=== PATIENT | male | born 1985 | race Caucasian/White ===

== ENCOUNTER 2018-02-11 22:48 | Emergency (ER) | payer MEDICARE, MEDICAID ==
--- NOTE | 2018-02-12 00:04 | EDM.PDOC ---
ED HPI GENERAL MEDICAL PROBLEM - General Chief Complaint: Skin Complaint Stated Complaint: LEFT ARM COMPLAINT Time Seen by Provider: 02/11/18 23:16 Source of Information: Reports: Patient History Limitations: Reports: Altered Mental Status - History of Present Illness INITIAL COMMENTS - FREE TEXT/NARRATIVE: The patient's history is difficult to obtain, as his thoughts are rambling, switching from subject to subject frequently, and paranoid. He forgets what he is talking about, and drifts off. He reports feeling object thoughts. He presents to the emergency room with an erythematous area to the ulnar aspect of his left forearm, that he states has been there for about 4 hours. When asked , he states that he injected Desoxyn to that site. Desoxyn is a brand name for prescription methamphetamine. It comes as an oral tablet. When asked if he was prescribed it or got it off the street, he acknowledged that he got it off the street. When asked about his methamphetamine use, the patient was very vague, initially indicating that he has only been using it for a few weeks, later indicating that he has been using it for many years. He indicated that he had previously been on Concerta, but decided to switch to methamphetamine, because he feels that it is much better. He also acknowledges smoking marijuana on occasion, including tonight. He states that he is an alcoholic, although he states that he drinks less now. When asked if the patient shares needles, he indicated that he does, but that he bleaches his syringe. The patient states that his PCP is at [facility], but he does not recall their name. Treatments ADMITTING REPRESENTATIVE: Reports: Other (see below) Other Treatments ADMITTING REPRESENTATIVE: took anxiety pill Left Arm Pain Score (Numeric/FACES): 4 - Related Data Allergies Allergy/AdvReac Type Severity Reaction Status Date / Time azithromycin Allergy Rash Verified 02/11/18 22:57 morphine Allergy Rash Verified 02/11/18 22:57 Home Meds: Home Meds Metoprolol Succinate 100 mg PO DAILY 02/11/18 [History] Omeprazole 20 mg PO DAILY 02/11/18 [History] risperiDONE [Risperdal] 0 mg PO DAILY 02/11/18 [History] Past Medical History Gastrointestinal History: Reports: GERD Psychiatric History: Reports: ADHD, Bipolar Social & Family History - Tobacco Use Smoking Status *Q: Former Smoker Years of Tobacco use: 11 Packs/Tins Daily: 1.5 Month/Year Tobacco Last Used: Quit 2011 - Caffeine Use Caffeine Use: Reports: Coffee, Tea - Alcohol Use Alcohol Use History: Yes Date/Time of Last Drink Comment: Alcoholic - Recreational Drug Use Recreational Drug Use: Yes Drug Use in Last 12 Months: Yes Recreational Drug Type: Reports: Marijuana/Hashish (last smoked 02/12/2018), Methamphetamine (last injected 02/12/2018) Other Recreational Drug Type: pt states he had a surgical procedure in the past to the LAC and says from iv drug use but then refusing to discuss anymore about this - Living Situation & Occupation Living situation: Reports: Single, Alone Occupation: Employed (Odd jobs) ED ROS GENERAL - Review of Systems Review Of Systems: ROS reveals no pertinent complaints other than HPI. ED EXAM, SKIN/RASH Exam: See Below Exam Limited By: No Limitations General Appearance: WD/WN, No Apparent Distress Eye Exam: Bilateral Eye: Normal Inspection Ears: Normal External Exam, Hearing Grossly Normal Nose: Normal Inspection Throat/Mouth: Normal Inspection, Normal Lips, Normal Voice, No Airway Compromise Head: Atraumatic, Normocephalic Neck: Normal Inspection, Full Range of Motion Respiratory/Chest: No Respiratory Distress, Lungs Clear, Normal Breath Sounds, No Accessory Muscle Use Cardiovascular: Normal Peripheral Pulses, No Edema, No Gallop, No JVD, No Murmur , No Rub, Tachycardia (regular) Peripheral Pulses: 4+: Radial (L), Radial (R) GI/Abdominal: Normal Bowel Sounds, Soft, Non-Tender, No Organomegaly, No Distention, No Abnormal Bruit, No Mass, Other (Obese) (Male) Exam: Deferred Rectal (Males) Exam: Deferred Back Exam: Normal Inspection, Full Range of Motion, NT Extremities: Normal Range of Motion, No Pedal Edema, Normal Capillary Refill, Other (Approximately 4 cm irregularly shaped area of erythema, slightly swollen , to the ulnar aspect of the mid left forearm. The patient reports tenderness to palpation. No fluctuance.) Neurological: No Motor/Sensory Deficits, Confused (Rambling thoughts) Psychiatric: Other (Paranoia) Skin: Warm, Intact, Normal Color, No Rash, Diaphoretic Course - Vital Signs Last Recorded V/S: Last Vital Signs Temp 37.2 C 02/11/18 23:05 Pulse 105 H 02/11/18 23:05 Resp 20 02/11/18 23:05 BP 144/108 H 02/11/18 23:05 Pulse Ox 98 02/11/18 23:05 - Orders/Labs/Meds Orders: Active Orders 24 hr Category Date Time Status DRUG SCREEN, URINE [URCHEM] Stat Lab 02/11/18 23:33 Ordered Labs: Laboratory Tests 02/11/18 02/11/18 02/11/18 Range/Units 23:45 23:45 23:45 WBC 7.66 (4.23-9.07) K/mm3 RBC 4.93 (4.63-6.08) M/mm3 Hgb 14.0 (13.7-17.5) gm/L Hct 41.4 (40.1-51.0) % MCV 84.0 (79.0-92.2) fl MCH 28.4 (25.7-32.2) pg MCHC 33.8 (32.2-35.5) g/dl RDW Std Deviation 40.9 (35.1-43.9) fL Plt Count 241 (163-337) K/mm3 MPV 9.7 (9.4-12.3) fl Neutrophils % (Manual) 78 H (40-60) % Band Neutrophils % 0 (0-10) % Lymphocytes % (Manual) 19 L (20-40) % Atypical Lymphs % 0 % Monocytes % (Manual) 1 L (2-10) % Eosinophils % (Manual) 2 (0.8-7.0) % Basophils % (Manual) 0 L (0.2-1.2) Toxic Granulation Few Platelet Estimate Adequate Plt Morphology Comment Normal RBC Morph Comment Normal Sodium 138 (136-145) mEq/L Potassium 3.5 (3.5-5.1) mEq/L Chloride 102 (98-107) mEq/L Carbon Dioxide 24 (21-32) mEq/L Anion Gap 15.5 H (5-15) BUN 18 (7-18) mg/dL Creatinine 1.3 (0.7-1.3) mg/dL Est Cr Clr Drug Dosing 72.25 mL/min Estimated GFR (MDRD) > 60 (>60) mL/min BUN/Creatinine Ratio 13.8 L (14-18) Glucose 172 H (74-106) mg/dL Calcium 9.0 (8.5-10.1) mg/dL Magnesium 2.1 (1.8-2.4) mg/dl Total Bilirubin 0.5 (0.2-1.0) mg/dL AST 18 (15-37) U/L ALT 24 (16-63) U/L Alkaline Phosphatase 64 (46-116) U/L Total Protein 7.3 (6.4-8.2) g/dl Albumin 3.8 (3.4-5.0) g/dl Globulin 3.5 gm/dL Albumin/Globulin Ratio 1.1 (1-2) Ethyl Alcohol 0.00 (0.00) gm% HIV-1 Ab Rapid Screen Negative (NEGATIVE) - Re-Assessments/Exams Free Text/Narrative Re-Assessment/Exam: 02/12/18 00:04 Notified by Kori SIMS that the patient is refusing to provide a urine sample. 02/12/18 01:46 The patient's CMP finds his blood glucose to be elevated at 172. The remainder of his workup is unremarkable, although, as above, he did not provide a urine sample for us to check a urine drug screen. As the patient has been expressing rambling thoughts and paranoia, I would prefer to keep him in the ER overnight, although if he decides he wants to go home, I don't know that I have the legal authority to stop him. 02/12/18 05:48 Notified by Kori SIMS that the patient was awakened wanted to go home. The patient is more lucid than he was earlier, but he is still invasive. I asked him if he would consider getting help with respect to his methamphetamine use, and he said no, that it was just a birthday thing (today is, in fact, his birthday), and that he does not need help. Departure - Departure Time of Disposition: 05:50 Disposition: Home, Self-Care 01 Condition: Fair Clinical Impression: Methamphetamine use, Cleans drug injection needle with bleach, Eruption due to drug at injection site, Hyperglycemia - Discharge Information Referrals: Emmanuelle Mandujano PA [Primary Care Provider] - Forms: ED Department Discharge Additional Instructions: You were seen in the emergency room for evaluation of a rash on your left forearm. You informed us that you had injected methamphetamine at that site. Workup in the ER included a number of blood tests. You refused to provide a urine sample. Your blood sugar was found to be elevated at 172. This indicates that you have either prediabetes or diabetes. We recommend that you follow-up with your PCP for further evaluation. We STRONGLY recommend that you seek professional counseling with respect to your methamphetamine use. Follow-up at [facility]: [address] [place] [phone] If any other problems, please do not hesitate to return to the ER. - My Orders Last 24 Hours: My Active Orders 02/11/18 23:33 DRUG SCREEN, URINE [URCHEM] Stat - Assessment/Plan Last 24 Hours: My Active Orders 02/11/18 23:33 DRUG SCREEN, URINE [URCHEM] Stat
== END 2018-02-12 06:06 | disposition home or self-care (01) ==
LOC: JD.ED 22:48
DX: T54.91XA Toxic effect of unspecified corrosive substance, accidental (unintentional), initial encounter (principal); L27.0 Generalized skin eruption due to drugs and medicaments taken internally; F15.90 Other stimulant use, unspecified, uncomplicated; R73.9 Hyperglycemia, unspecified; Z88.1 Allergy status to other antibiotic agents; Z88.5 Allergy status to narcotic agent; Z79.899 Other long term (current) drug therapy; K21.9 Gastro-esophageal reflux disease without esophagitis; Z87.891 Personal history of nicotine dependence
CPT/HCPCS: 36415; 80053; 83735; 85007; 85027; 99284; G0433; G0480; 99283

== ENCOUNTER 2018-09-21 16:53 | Emergency (ER) | payer MEDICARE, MEDICAID ==
--- NOTE | 2018-09-21 17:39 | EDM.PDOCBH ---
ED HPI GENERAL MEDICAL PROBLEM - General Chief Complaint: Behavioral/Psych Stated Complaint: MEDICAL CLEARANCE Time Seen by Provider: 09/21/18 17:15 Source of Information: Reports: Patient, Police, RN Notes Reviewed History Limitations: Reports: Uncooperative ("I don't want to talk to you") - History of Present Illness INITIAL COMMENTS - FREE TEXT/NARRATIVE: The patient is brought by the [place] police from [facility]. They are psychiatrically committing the patient to the [facility] in [place], but need medical clearance first. The plan would be that , once medically cleared, the patient would spend the night in snf, then be transported to [place] in the morning. In their paperwork, they report that the patient told them that he was going to go home and take a shot of vape juice just to see if it will poison him. He stated that he had drunk some the previous night. He was asked to provide a urine sample, and he refused. They report that he presented with symptoms of divine, impulsivity, racing thoughts, difficulty focusing, inattention, explosive mood swings, and engaging in dangerous self-harm behaviors. They felt that it was clear that he was an imminent danger to himself in his current state of mind, and therefore required psychiatric admission. Her in the ED, the patient is making some random statements, but is difficult to understand. After about a minute, he stated that he no longer wanted to talk to me, and refused to answer any further questions. When I offered him dinner, however, he did thank me, and he allowed me to physically examine him. The patient told Geni SIMS that he had injected vodka into his arm. Reviewing prior medical records, it is noted that the patient has a history of methamphetamine abuse. It is unknown if the patient has a PCP. - Related Data Allergies Allergy/AdvReac Type Severity Reaction Status Date / Time azithromycin Allergy Rash Verified 07/09/18 00:57 morphine Allergy Rash Verified 07/09/18 00:57 Home Meds: Home Meds Metoprolol Succinate 100 mg PO DAILY 02/11/18 [History] Omeprazole 20 mg PO DAILY 02/11/18 [History] Past Medical History Gastrointestinal History: Reports: GERD Psychiatric History: Reports: ADHD, Addiction (methamphetamine), Bipolar Social & Family History - Tobacco Use Smoking Status *Q: Never Smoker Second Hand Smoke Exposure: Yes - Caffeine Use Caffeine Use: Reports: None - Recreational Drug Use Recreational Drug Use: No - Living Situation & Occupation Living situation: Reports: Single, Alone Occupation: Employed (Odd jobs) ED ROS GENERAL - Review of Systems Review Of Systems: Unable To Obtain ED EXAM, BEHAVIORAL HEALTH - Physical Exam Exam: See Below Exam Limited By: No Limitations General Appearance: Alert, WD/WN, No Apparent Distress, Other (The patient's right wrist is handcuffed to the gurney) Eye Exam: Bilateral Eye: EOMI, Normal Inspection Ears: Normal External Exam, Hearing Grossly Normal Nose: Normal Inspection Throat/Mouth: Normal Inspection, Normal Lips, Normal Voice, No Airway Compromise Head: Atraumatic, Normocephalic Neck: Normal Inspection, Full Range of Motion Respiratory/Chest: No Respiratory Distress, Lungs Clear, Normal Breath Sounds, No Accessory Muscle Use Cardiovascular: Normal Peripheral Pulses, Regular Rate, Rhythm, No Gallop, No JVD, No Murmur, No Rub GI/Abdominal: Normal Bowel Sounds, Soft, Non-Tender, No Organomegaly, No Distention, No Abnormal Bruit, No Mass (Male) Exam: Deferred Rectal (Males) Exam: Deferred Back Exam: Normal Inspection, Full Range of Motion, NT Extremities: Normal Inspection, Normal Range of Motion, Normal Capillary Refill Neurological: Alert, No Motor/Sensory Deficits Psychiatric: Non-Communicative, Poor Eye Contact Skin Exam: Warm, Dry, Intact, Normal color, No rash EKG INTERPRETATION EKG Date: 09/21/18 Time: 17:52 Rhythm: NSR Rate (Beats/Min): 79 [place]: Normal P-Wave: Present QRS: Normal ST-T: Normal QT: Normal Comparison: No Change (07/09/2018) COURSE, BEHAVIORAL HEALTH COMP - Course Vital Signs: Last Vital Signs Temp 36.2 C 09/21/18 17:00 Pulse 90 09/21/18 17:00 Resp 16 09/21/18 17:00 BP 151/98 H 09/21/18 17:00 Pulse Ox 85 L 09/21/18 17:00 Orders, Labs, Meds: Active Orders 24 hr Category Date Time Status EKG Documentation Completion [RC] STAT Care 09/21/18 17:27 Active AMPHET/METH EXT CONF (GCMS) Stat Lab 09/21/18 17:50 Received AMPHETAMINES, CONF, UR Stat Lab 09/21/18 17:50 Received CANNABINOID (THC) CONFIRM, UR Stat Lab 09/21/18 17:50 Received Laboratory Tests 09/21/18 09/21/18 09/21/18 Range/Units 17:35 17:35 17:35 WBC 8.82 (4.23-9.07) K/mm3 RBC 4.75 (4.63-6.08) M/mm3 Hgb 14.2 (13.7-17.5) gm/L Hct 41.2 (40.1-51.0) % MCV 86.7 (79.0-92.2) fl MCH 29.9 (25.7-32.2) pg MCHC 34.5 (32.2-35.5) g/dl RDW Std Deviation 40.3 (35.1-43.9) fL Plt Count 214 (163-337) K/mm3 MPV 9.6 (9.4-12.3) fl Neutrophils % (Manual) 61 H (40-60) % Band Neutrophils % 1 (0-10) % Lymphocytes % (Manual) 26 (20-40) % Atypical Lymphs % 0 % Monocytes % (Manual) 5 (2-10) % Eosinophils % (Manual) 6 (0.8-7.0) % Basophils % (Manual) 1 (0.2-1.2) Platelet Estimate Adequate RBC Morph Comment Normal Sodium 139 (136-145) mEq/L Potassium 3.4 L (3.5-5.1) mEq/L Chloride 103 (98-107) mEq/L Carbon Dioxide 25 (21-32) mEq/L Anion Gap 14.4 (5-15) BUN 25 H (7-18) mg/dL Creatinine 1.0 (0.7-1.3) mg/dL Est Cr Clr Drug Dosing 73.61 mL/min Estimated GFR (MDRD) > 60 (>60) mL/min BUN/Creatinine Ratio 25.0 H (14-18) Glucose 136 H (74-106) mg/dL Calcium 9.6 (8.5-10.1) mg/dL Total Bilirubin 0.3 (0.2-1.0) mg/dL AST 28 (15-37) U/L ALT 30 (16-63) U/L Alkaline Phosphatase 71 (46-116) U/L Total Protein 7.8 (6.4-8.2) g/dl Albumin 4.1 (3.4-5.0) g/dl Globulin 3.7 gm/dL Albumin/Globulin Ratio 1.1 (1-2) TSH 3rd Generation 3.510 (0.358-3.74) uIU/mL Salicylates 1.2 L (2.8-20) mg/dL Urine Opiates Screen (KCGQNM=655) Ur Buprenorphine Scrn (CUTOFF=10) Ur Oxycodone Screen (DQN4MU=420) Urine Methadone Screen (LJV1EV=805) Ur Propoxyphene Screen (GJXSMC=485) Acetaminophen 0 L (10-30) ug/mL Ur Barbiturates Screen (LWFGAP=499) Ur Tricyclics Screen (SQSLOI=004) Ur Phencyclidine Scrn (CUTOFF=25) Ur Amphetamine Screen (NMJBYA=497) U Methamphetamines Scrn (ZMXTMP=572) U Benzodiazepines Scrn (LEOJVZ=256) U Cocaine Metab Screen (JQMRBB=162) U Marijuana (THC) Screen (CUTOFF=50) Ethyl Alcohol 0.00 (0.00) gm% 09/21/18 Range/Units 17:50 WBC (4.23-9.07) K/mm3 RBC (4.63-6.08) M/mm3 Hgb (13.7-17.5) gm/L Hct (40.1-51.0) % MCV (79.0-92.2) fl MCH (25.7-32.2) pg MCHC (32.2-35.5) g/dl RDW Std Deviation (35.1-43.9) fL Plt Count (163-337) K/mm3 MPV (9.4-12.3) fl Neutrophils % (Manual) (40-60) % Band Neutrophils % (0-10) % Lymphocytes % (Manual) (20-40) % Atypical Lymphs % % Monocytes % (Manual) (2-10) % Eosinophils % (Manual) (0.8-7.0) % Basophils % (Manual) (0.2-1.2) Platelet Estimate RBC Morph Comment Sodium (136-145) mEq/L Potassium (3.5-5.1) mEq/L Chloride (98-107) mEq/L Carbon Dioxide (21-32) mEq/L Anion Gap (5-15) BUN (7-18) mg/dL Creatinine (0.7-1.3) mg/dL Est Cr Clr Drug Dosing mL/min Estimated GFR (MDRD) (>60) mL/min BUN/Creatinine Ratio (14-18) Glucose (74-106) mg/dL Calcium (8.5-10.1) mg/dL Total Bilirubin (0.2-1.0) mg/dL AST (15-37) U/L ALT (16-63) U/L Alkaline Phosphatase (46-116) U/L Total Protein (6.4-8.2) g/dl Albumin (3.4-5.0) g/dl Globulin gm/dL Albumin/Globulin Ratio (1-2) TSH 3rd Generation (0.358-3.74) uIU/mL Salicylates (2.8-20) mg/dL Urine Opiates Screen Negative (UJWXNU=551) Ur Buprenorphine Scrn Negative (CUTOFF=10) Ur Oxycodone Screen Negative (MAX6UU=398) Urine Methadone Screen Negative (VWP1EN=363) Ur Propoxyphene Screen Negative (XQTKJC=884) Acetaminophen (10-30) ug/mL Ur Barbiturates Screen Negative (RJMINP=502) Ur Tricyclics Screen Negative (DUOLGH=330) Ur Phencyclidine Scrn Negative (CUTOFF=25) Ur Amphetamine Screen Presumptive positive H (OAEEKE=945) U Methamphetamines Scrn Presumptive positive H (OCBBXA=462) U Benzodiazepines Scrn Negative (NUOMNZ=609) U Cocaine Metab Screen Negative (ZGGJWY=978) U Marijuana (THC) Screen Presumptive positive H (CUTOFF=50) Ethyl Alcohol (0.00) gm% Medical Clearance: 09/21/18 17:28 In order to medically clear the patient, to make sure that he is medically fit for psychiatric commitment, I need to check some labs, including, most importantly, a urine drug screen, along with an ECG and some blood work. The patient stated that he would be cooperative with the tests. 09/21/18 18:49 The patient's medical clearance workup is remarkable only for his urine drug screen being positive for amphetamine/methamphetamine, and marijuana. Stimulants , such as methamphetamine do not require medical treatment, unless the patient is hemodynamically unstable, which, in this case, he is not. The patient may therefore be safely discharged to the custody of the police for the night, then transported to [place] tomorrow morning. Departure - Departure Time of Disposition: 18:53 Disposition: Home, Self-Care 01 Condition: Good Clinical Impression: Medical clearance for psychiatric admission - Discharge Information *PRESCRIPTION DRUG MONITORING PROGRAM REVIEWED*: Not Applicable *COPY OF PRESCRIPTION DRUG MONITORING REPORT IN PATIENT KAUSHAL: Not Applicable Referrals: PCP,None [Primary Care Provider] - Forms: ED Department Discharge Additional Instructions: Mr. Iglesias was seen in the emergency room for medical clearance, in order to be psychiatrically admitted at their [facility] in [place]. Workup in the ER included an ECG, a CBC, a CMP, an acetaminophen level, a salicylate level, an alcohol level, a TSH level, and a urine drug screen. His entire workup was unremarkable, with the exception that his urine drug screen was positive for amphetamine/methamphetamine, and marijuana. Because he is hemodynamically stable, no medical treatment is required for the methamphetamine. He is medically fit for transport, and psychiatric admission to , [place]. If any other problems, please do not hesitate to return Mr. Iglesias to the ER. - My Orders Last 24 Hours: My Active Orders 09/21/18 17:27 EKG Documentation Completion [RC] STAT 09/21/18 17:50 AMPHET/METH EXT CONF (GCMS) Stat AMPHETAMINES, CONF, UR Stat CANNABINOID (THC) CONFIRM, UR Stat - Assessment/Plan Last 24 Hours: My Active Orders 09/21/18 17:27 EKG Documentation Completion [RC] STAT 09/21/18 17:50 AMPHET/METH EXT CONF (GCMS) Stat AMPHETAMINES, CONF, UR Stat CANNABINOID (THC) CONFIRM, UR Stat
[2018-09-21 18:13] LABS: ACETAMINOPHEN 0 ug/mL (10-30)
== END 2018-09-21 19:03 | disposition home or self-care (01) ==
LOC: JD.ED 16:53
DX: Z04.6 Encounter for general psychiatric examination, requested by authority (principal); K21.9 Gastro-esophageal reflux disease without esophagitis; Z88.1 Allergy status to other antibiotic agents; Z88.5 Allergy status to narcotic agent; Z77.22 Contact with and (suspected) exposure to environmental tobacco smoke (acute) (chronic)
CPT/HCPCS: 36415; 80053; 80306; 84443; 85007; 85027; 93005; 99285; G0480

== ENCOUNTER 2021-12-28 12:52 | Emergency (ER) | payer MEDICARE, MEDICAID ==
[2021-12-28] MEDS ORDERED: Haloperidol Lactate 5 MG/ML SDV IVPUSH ONE (13:04)
[2021-12-28] MEDS ORDERED: Sodium Chloride 0.9% 1,000 ML IV STA ×2 (13:30→14:53)
[2021-12-28 14:15] LABS: ACETAMINOPHEN 0 ug/mL (10-30)
== END 2021-12-28 20:17 ==
LOC: JD.ED 12:52
DX: R44.0 Auditory hallucinations (principal); F29 Unspecified psychosis not due to a substance or known physiological condition; F15.921 Other stimulant use, unspecified with intoxication delirium; R31.9 Hematuria, unspecified; K21.9 Gastro-esophageal reflux disease without esophagitis; I10 Essential (primary) hypertension; Z79.899 Other long term (current) drug therapy; Z88.1 Allergy status to other antibiotic agents; Z88.6 Allergy status to analgesic agent; Z20.822 Contact with and (suspected) exposure to COVID-19
CPT/HCPCS: 36415; 80053; 80143; 80179; 80306; 80307; 81001; 84443; 93005; 96374; 99285; J1630; J7030; U0002

== ENCOUNTER 2022-06-30 02:13 | Emergency (ER) | payer MEDICARE, MEDICAID | END 2022-06-30 03:40 | disposition left against medical advice (07) | LOC: JD.ED 02:13 | DX: Z53.21 Procedure and treatment not carried out due to patient leaving prior to being seen by health care provider (principal) ==

== ENCOUNTER 2022-07-01 19:10 | Emergency (ER) | payer MEDICARE, MEDICAID | END 2022-07-01 22:04 | disposition left against medical advice (07) | LOC: JD.ED 19:10 | DX: F31.9 Bipolar disorder, unspecified (principal); I10 Essential (primary) hypertension; Z79.899 Other long term (current) drug therapy; Z88.1 Allergy status to other antibiotic agents; Z88.6 Allergy status to analgesic agent | CPT/HCPCS: 99282 ==

== ENCOUNTER 2022-07-11 02:35 | Emergency (ER) | payer MEDICARE, MEDICAID | END 2022-07-11 09:30 | disposition left against medical advice (07) | LOC: JD.ED 02:35 | DX: S01.552A Open bite of oral cavity, initial encounter (principal); F15.10 Other stimulant abuse, uncomplicated; I10 Essential (primary) hypertension | CPT/HCPCS: 80306; 99283 ==

== ENCOUNTER 2022-07-11 10:34 | Emergency (ER) | payer MEDICARE, MEDICAID ==
[2022-07-11] MEDS ORDERED: risperiDONE 1 MG Tab PO ONE (11:06)
[2022-07-11] MEDS ORDERED: Haloperidol Lactate 5 MG/ML SDV IM ONE (11:32)
[2022-07-11] MEDS ORDERED: LORazepam 2 MG/ML SDV IM ONE (11:33)
[2022-07-11 12:30] LABS: ESTIMATED GFR 112 mL/min (>60)
[2022-07-11 12:31] LABS: ACETAMINOPHEN 0 ug/mL (10-30)
== END 2022-07-11 18:30 ==
LOC: JD.ED 10:34
DX: Z00.8 Encounter for other general examination (principal); F15.90 Other stimulant use, unspecified, uncomplicated; I10 Essential (primary) hypertension; K21.9 Gastro-esophageal reflux disease without esophagitis; Z88.1 Allergy status to other antibiotic agents; Z88.5 Allergy status to narcotic agent; Z79.899 Other long term (current) drug therapy; Z20.822 Contact with and (suspected) exposure to COVID-19
CPT/HCPCS: 36415; 80053; 80143; 80179; 80307; 84443; 85025; 96372; 99283; A9270-GY; J1630; J2060; U0002